=== PATIENT | female | born 1940 | race Caucasian/White ===

== ENCOUNTER 2021-09-01 12:05 | Outpatient (REF) | payer MEDICARE, OTHER, SELFPAY ==
[2021-09-01 18:49] LABS: Influenza A PCR NEGATIVE (Negative); Influenza B PCR NEGATIVE (Negative); Resp Syncy Virus RNA Qual PCR NEGATIVE (Negative); SARS COV2 PCR INHOUSE POSITIVE (Negative)
== END 2021-09-01 12:06 | disposition home or self-care (01) ==
LOC: HO.LAB 12:05
PROVIDERS: Visit Provider Hospitalist
DX: Z20.822 Contact with and (suspected) exposure to COVID-19 (principal)
CPT/HCPCS: 0241U; 36415